=== PATIENT | male | born 1975 | race Caucasian/White ===

== ENCOUNTER 2017-04-14 00:24 | Emergency (ER) | payer SELFPAY ==
[~2017-04-14] VITALS: Ht 182.9 cm; Wt 84.8 kg
[2017-04-14 06:14] VITALS: BP 129/86
== END 2017-04-14 06:19 | disposition home or self-care (01) ==
LOC: ED 06:10
DX: F10.121 Alcohol abuse with intoxication delirium (principal); G93.41 Metabolic encephalopathy
CPT/HCPCS: 36415; 70450; 80307; 99285; G0479

== ENCOUNTER 2019-01-05 11:51 | Inpatient (IN) | payer OTHER ==
[~2019-01-05] VITALS: Ht 182.9 cm; Wt 85.5 kg
--- NOTE | 2019-01-05 12:12 | NUR ---
THIS IS A 43 Y/O MALE ARRIVING TO THE ED WITH C/O OF CHEST PAIN IN THE EPIGASTRIC REGION PT REPORTS THAT HE HAS THIS PAIN REMAIN CONSTANT AND PRESSURE LIKE. PT REPORTS THAT IT IS IN THE EPIGASTRIC REGION AND IS A 10/10 PAIN, PT REPORTS "FEELS LIKE MY STOMACH IS GONNA BLOW". PT DENIES TRUAMA AND REPORTS HEAVY DRINKING. PT DRINKS CLOSE TO [address] MLS OF HARD LIQUOR AT HOME AND KNOWS HE HAS A PROBLEM. DENIES HX OF PANCREATITIS. PT CONNECTED TO MONITORS AND RN URGENT CARE STUDENT ESTABLISHING PIV.
[2019-01-05] MEDS ORDERED: FAMOTIDINE 20 MG/2 ML IVP ONE (12:30)
[2019-01-05] MEDS ORDERED: SODIUM CHLORIDE FLUSH 10ML SYR IVF ONE (12:30)
[2019-01-05] MEDS: HYDROmorphone 2 MG/ML, 1ML IVPush PRN ×3 (12:30→16:21)
[2019-01-05] MEDS ORDERED: SODIUM CHLORIDE 0.9% 1,000ML IVBOLUS ONE (12:30)
[2019-01-05] MEDS ORDERED: ONDANSETRON 2MG/ML, 2ML IVPush ONE (12:30)
[2019-01-05] MEDS ORDERED: ONDANSETRON 2MG/ML, 2ML ONE (12:38)
[2019-01-05] MEDS ORDERED: HYDROmorphone 2 MG/ML, 1ML ONE (12:39)
[2019-01-05] MEDS ORDERED: FAMOTIDINE 20 MG/2 ML ONE (12:39)
[2019-01-05 12:49] LABS: BASOPHILS # (AUTO) 0.02 x10^3/uL (0-0.1); BASOPHILS % (AUTO) 0 % (0-1); EOSINOPHILS % (AUTO) 0 % (1-7); LYMPHOCYTES # (AUTO) 0.87 x10^3/uL (1-3.4); LYMPHOCYTES % (AUTO) 12 % (22-44); MD NO; MEAN CORPUSCULAR HEMOGLOBIN 33.9 pg (27.5-34.5); MEAN CORPUSCULAR HGB CONC 33.7 g/dL (33.2-36.2); MEAN CORPUSCULAR VOLUME 100.5 fL (81-97); MEAN PLATELET VOLUME 7.4 fL (7.4-10.4); MONOCYTES # (AUTO) 0.46 x10^3/uL (0.2-0.8); MONOCYTES % (AUTO) 6 % (2-9); NEUTROPHILS # (AUTO) 6.13 x10^3/uL (1.8-6.8); NEUTROPHILS % (AUTO) 82 % (42-75); PLATELET COUNT 154 x10^3/uL (130-400); RED BLOOD COUNT 5.01 x10^6/uL (4.38-5.82); RED CELL DISTRIBUTION WIDTH 14.9 % (9.4-14.8)
[2019-01-05 12:57] LABS: INTERNATIONAL NORMALIZED RATIO 0.95 (0.93-1.1)
[2019-01-05 13:00] LABS: ALANINE AMINOTRANSFERASE 64 U/L (12-78); ALBUMIN 4.3 g/dL (3.4-5.0); ANION GAP 10 mmol/L (5-15); CALCIUM 9.1 mg/dL (8.5-10.1); CHLORIDE 99 mmol/L (98-107); CREATININE 1.02 mg/dL (0.7-1.3)
[2019-01-05 13:05] LABS: ALKALINE PHOSPHATASE 98 U/L (45-117); BILIRUBIN,TOTAL 0.7 mg/dL (0.2-1.0); TOTAL PROTEIN 8.1 g/dL (6.4-8.2); TROPONIN I < 0.015 ng/mL (0.000-0.045)
--- NOTE | 2019-01-05 13:08 | NUR ---
pt reports pain improvement. Pt able to rest. ivf competed.
--- NOTE | 2019-01-05 13:50 | NUR ---
Awaiting return from CT.
--- NOTE | 2019-01-05 13:58 | NUR ---
PT BACK FROM CT, REPORTS PAIN STILL UNDER CONTROL.
[2019-01-05] MEDS ORDERED: OMNIPAQUE 350 MG/ML, 100ML BOTTLE ONE (14:01)
[2019-01-05] MEDS ORDERED: ONDANSETRON 2MG/ML, 2ML IVPush PRN (15:00)
[2019-01-05] MEDS ORDERED: FOLIC ACID 5 MG/ML IM ONE (15:00)
[2019-01-05] MEDS ORDERED: LORazepam 1MG TABLET PO PRN ×3 (15:00)
[2019-01-05] MEDS ORDERED: LORazepam 2 MG/ML, 1ML IV PRN ×5 (15:00)
[2019-01-05] MEDS ORDERED: PROMETHAZINE 25 MG/ML, 1ML IM PRN (15:00)
[2019-01-05] MEDS ORDERED: hydrALAzine 20 MG/ML, 1ML IVPush PRN (15:00)
--- NOTE | 2019-01-05 15:33 | NUR ---
report to nikki alaniz to room 338
[2019-01-05 16:25] VITALS: BP 158/93
[2019-01-05] MEDS ORDERED: FOLIC ACID 1 MG TABLET PO ONE (16:30)
[2019-01-05] MEDS: THIAMINE 100MG TABLET PO SCH (17:05)
[2019-01-05] MEDS: LACTATED RINGERS 1,000 ML IV SCH ×2 (17:06→23:08)
[2019-01-05] MEDS ORDERED: CYANOCOBALAMIN 1,000 MCG/ML, 1ML IM ONE (18:00)
[2019-01-05] MEDS: PANTOPRAZOLE 40 MG IV IVPush SCH (19:58)
[2019-01-05] MEDS: LORazepam 0.5MG TABLET PO PRN (19:59)
[2019-01-05 21:15] VITALS: BP 175/90
[2019-01-05 22:26] LABS: MICROSCOPIC AUTO
[2019-01-05 22:34] LABS: CULTURE INDICATED? NO
[2019-01-05 23:18] VITALS: BP 168/95
[2019-01-06] MEDS: LORazepam 1MG TABLET PO PRN ×2 (01:29→14:46)
[2019-01-06 01:50] VITALS: BP 152/74
[2019-01-06 04:21] LABS: BASOPHILS # (AUTO) 0.01 x10^3/uL (0-0.1); BASOPHILS % (AUTO) 0 % (0-1); EOSINOPHILS % (AUTO) 0 % (1-7); LYMPHOCYTES # (AUTO) 1.04 x10^3/uL (1-3.4); LYMPHOCYTES % (AUTO) 12 % (22-44); MD NO; MEAN CORPUSCULAR HEMOGLOBIN 32.9 pg (27.5-34.5); MEAN CORPUSCULAR HGB CONC 33.3 g/dL (33.2-36.2); MEAN CORPUSCULAR VOLUME 98.9 fL (81-97); MEAN PLATELET VOLUME 7.3 fL (7.4-10.4); MONOCYTES # (AUTO) 0.51 x10^3/uL (0.2-0.8); MONOCYTES % (AUTO) 6 % (2-9); NEUTROPHILS # (AUTO) 7.12 x10^3/uL (1.8-6.8); NEUTROPHILS % (AUTO) 82 % (42-75); PLATELET COUNT 124 x10^3/uL (130-400); RED BLOOD COUNT 4.61 x10^6/uL (4.38-5.82)
[2019-01-06 04:29] LABS: ALANINE AMINOTRANSFERASE 41 U/L (12-78); ALBUMIN 3.3 g/dL (3.4-5.0); ANION GAP 6 mmol/L (5-15); CALCIUM 8.6 mg/dL (8.5-10.1); CHLORIDE 103 mmol/L (98-107); CHOLESTEROL, TOTAL 207 mg/dL (140-239); CREATININE 0.77 mg/dL (0.7-1.3); TRIGLYCERIDES 164 mg/dL (50-200); VLDL CHOLESTEROL 33 mg/dL (0-25)
[2019-01-06 04:31] LABS: ALKALINE PHOSPHATASE 77 U/L (45-117); BILIRUBIN,TOTAL 0.8 mg/dL (0.2-1.0); CHOL/HDL RATIO 2.3; HDL CHOL % 44 % (26-37); HDL CHOLESTEROL (DIRECT) 91 mg/dL (40-60); LDL CHOLESTEROL,CALCULATED 83 mg/dL (54-169); LDL/HDL RATIO 0.9 (0.5-3.0); TOTAL PROTEIN 6.5 g/dL (6.4-8.2)
[2019-01-06] MEDS: HYDROmorphone 2 MG/ML, 1ML IVPush PRN (05:26)
[2019-01-06] MEDS: LACTATED RINGERS 1,000 ML IV SCH ×3 (05:26→17:55)
[2019-01-06 08:01] VITALS: BP 142/88
[2019-01-06] MEDS: MULTIVITAMINS/MINERALS TABLET PO SCH (09:26)
[2019-01-06] MEDS: PANTOPRAZOLE 40 MG IV IVPush SCH ×2 (09:26→20:51)
[2019-01-06] MEDS: THIAMINE 100MG TABLET PO SCH (09:26)
[2019-01-06] MEDS: CYANOCOBALAMIN 1,000 MCG TABLET PO SCH (11:30)
[2019-01-06 12:53] VITALS: BP 146/74
[2019-01-06] MEDS: ACETAMINOPHEN 325 MG TABLET PO PRN (17:57)
[2019-01-06] MEDS: OXYcodone IR 5MG TABLET PO PRN (20:51)
[2019-01-06 21:18] VITALS: BP 166/90
[2019-01-07] MEDS: ACETAMINOPHEN 325 MG TABLET PO PRN (00:38)
[2019-01-07] MEDS: LACTATED RINGERS 1,000 ML IV SCH ×4 (00:38→20:05)
[2019-01-07 01:47] VITALS: BP 128/75
[2019-01-07] MEDS: LORazepam 1MG TABLET PO PRN (04:07)
[2019-01-07 04:49] LABS: BASOPHILS # (AUTO) 0.02 x10^3/uL (0-0.1); BASOPHILS % (AUTO) 0 % (0-1); EOSINOPHILS # (AUTO) 0.04 x10^3/uL (0-0.4); EOSINOPHILS % (AUTO) 1 % (1-7); LYMPHOCYTES # (AUTO) 1.61 x10^3/uL (1-3.4); LYMPHOCYTES % (AUTO) 21 % (22-44); MD NO; MEAN CORPUSCULAR HEMOGLOBIN 33.2 pg (27.5-34.5); MEAN CORPUSCULAR HGB CONC 33.5 g/dL (33.2-36.2); MEAN PLATELET VOLUME 7.2 fL (7.4-10.4); MONOCYTES # (AUTO) 0.68 x10^3/uL (0.2-0.8); MONOCYTES % (AUTO) 9 % (2-9); NEUTROPHILS # (AUTO) 5.19 x10^3/uL (1.8-6.8); NEUTROPHILS % (AUTO) 69 % (42-75); PLATELET COUNT 116 x10^3/uL (130-400); RED BLOOD COUNT 4.13 x10^6/uL (4.38-5.82); RED CELL DISTRIBUTION WIDTH 14.1 % (9.4-14.8)
[2019-01-07 05:00] LABS: ALANINE AMINOTRANSFERASE 30 U/L (12-78); ALBUMIN 2.9 g/dL (3.4-5.0); ANION GAP 5 mmol/L (5-15); CALCIUM 8.6 mg/dL (8.5-10.1); CHLORIDE 102 mmol/L (98-107); CREATININE 0.75 mg/dL (0.7-1.3)
[2019-01-07 05:03] LABS: ALKALINE PHOSPHATASE 99 U/L (45-117); BILIRUBIN,TOTAL 0.9 mg/dL (0.2-1.0); TOTAL PROTEIN 6.3 g/dL (6.4-8.2)
[2019-01-07 08:40] VITALS: BP 141/78
[2019-01-07] MEDS ORDERED: THIAMINE 100 MG in DEXTROSE 5% 50 ML IVPB SCH (09:00)
[2019-01-07] MEDS: MULTIVITAMINS/MINERALS TABLET PO SCH (10:08)
[2019-01-07] MEDS: PANTOPRAZOLE 40 MG IV IVPush SCH ×2 (10:08→20:05)
[2019-01-07] MEDS: CYANOCOBALAMIN 1,000 MCG TABLET PO SCH (10:09)
[2019-01-07] MEDS: POTASSIUM CHLORIDE 20 MEQ TAB.ER.PRT PO SCH ×2 (10:09→17:09)
[2019-01-07] MEDS: THIAMINE 100MG TABLET PO SCH (10:09)
[2019-01-07 13:35] VITALS: BP 144/85
[2019-01-07 21:38] VITALS: BP 151/86
[2019-01-07] MEDS: LORazepam 0.5MG TABLET PO PRN (22:53)
[2019-01-08 03:20] VITALS: BP 148/79
[2019-01-08] MEDS: LACTATED RINGERS 1,000 ML IV SCH ×3 (03:33→19:44)
[2019-01-08 05:46] LABS: BASOPHILS # (AUTO) 0.02 x10^3/uL (0-0.1); BASOPHILS % (AUTO) 0 % (0-1); EOSINOPHILS # (AUTO) 0.06 x10^3/uL (0-0.4); EOSINOPHILS % (AUTO) 1 % (1-7); LYMPHOCYTES # (AUTO) 1.58 x10^3/uL (1-3.4); LYMPHOCYTES % (AUTO) 21 % (22-44); MD NO; MEAN PLATELET VOLUME 8.1 fL (7.4-10.4); MONOCYTES # (AUTO) 0.74 x10^3/uL (0.2-0.8); MONOCYTES % (AUTO) 10 % (2-9); NEUTROPHILS # (AUTO) 5.07 x10^3/uL (1.8-6.8); NEUTROPHILS % (AUTO) 68 % (42-75); PLATELET COUNT 129 x10^3/uL (130-400); RED BLOOD COUNT 4.07 x10^6/uL (4.38-5.82); RED CELL DISTRIBUTION WIDTH 14.5 % (9.4-14.8)
[2019-01-08 06:00] LABS: ALANINE AMINOTRANSFERASE 35 U/L (12-78); ALBUMIN 3.2 g/dL (3.4-5.0); ANION GAP 6 mmol/L (5-15); CALCIUM 9.1 mg/dL (8.5-10.1); CHLORIDE 104 mmol/L (98-107)
[2019-01-08 06:02] LABS: ALKALINE PHOSPHATASE 170 U/L (45-117); BILIRUBIN,TOTAL 0.8 mg/dL (0.2-1.0)
[2019-01-08 08:40] VITALS: BP 159/106
[2019-01-08] MEDS: MULTIVITAMINS/MINERALS TABLET PO SCH (09:33)
[2019-01-08] MEDS: THIAMINE 100MG TABLET PO SCH (09:33)
[2019-01-08] MEDS: CYANOCOBALAMIN 1,000 MCG TABLET PO SCH (09:33)
[2019-01-08] MEDS: PANTOPRAZOLE 40 MG IV IVPush SCH (09:33)
[2019-01-08] MEDS: OXYcodone IR 5MG TABLET PO PRN ×3 (09:34→20:19)
[2019-01-08] MEDS ORDERED: POTASSIUM CHLORIDE 20 MEQ TAB.ER.PRT PO ONE (10:30)
[2019-01-08 10:58] VITALS: BP 151/88
[2019-01-08 13:05] VITALS: BP 148/102
[2019-01-08] MEDS: LISINOPRIL 5 MG TABLET PO SCH (13:08)
[2019-01-08 16:38] VITALS: BP_SYST 148; BP_SYST 166; BP_DIAS 108; BP_DIAS 116
[2019-01-08] MEDS ORDERED: LISINOPRIL 5 MG TABLET PO ONE (18:00)
[2019-01-08] MEDS: ACETAMINOPHEN 325 MG TABLET PO PRN (18:38)
[2019-01-08 20:06] VITALS: BP 161/101
[2019-01-09] MEDS: ACETAMINOPHEN 325 MG TABLET PO PRN (00:20)
[2019-01-09] MEDS: OXYcodone IR 5MG TABLET PO PRN ×2 (00:20→09:13)
[2019-01-09 01:03] VITALS: BP 168/91
[2019-01-09 04:35] LABS: BASOPHILS # (AUTO) 0.04 x10^3/uL (0-0.1); BASOPHILS % (AUTO) 1 % (0-1); EOSINOPHILS # (AUTO) 0.09 x10^3/uL (0-0.4); EOSINOPHILS % (AUTO) 1 % (1-7); LYMPHOCYTES # (AUTO) 1.76 x10^3/uL (1-3.4); LYMPHOCYTES % (AUTO) 24 % (22-44); MD NO; MEAN CORPUSCULAR HEMOGLOBIN 33.4 pg (27.5-34.5); MEAN CORPUSCULAR HGB CONC 33.4 g/dL (33.2-36.2); MEAN CORPUSCULAR VOLUME 100.1 fL (81-97); MEAN PLATELET VOLUME 7.1 fL (7.4-10.4); MONOCYTES # (AUTO) 0.79 x10^3/uL (0.2-0.8); MONOCYTES % (AUTO) 11 % (2-9); NEUTROPHILS % (AUTO) 63 % (42-75); PLATELET COUNT 174 x10^3/uL (130-400); RED BLOOD COUNT 4.15 x10^6/uL (4.38-5.82); RED CELL DISTRIBUTION WIDTH 14.6 % (9.4-14.8)
[2019-01-09 04:45] LABS: ALANINE AMINOTRANSFERASE 99 U/L (12-78); ALBUMIN 3.3 g/dL (3.4-5.0); ANION GAP 8 mmol/L (5-15); CALCIUM 9.5 mg/dL (8.5-10.1); CHLORIDE 102 mmol/L (98-107); CREATININE 0.72 mg/dL (0.7-1.3)
[2019-01-09 04:50] LABS: ALKALINE PHOSPHATASE 247 U/L (45-117); BILIRUBIN,TOTAL 0.7 mg/dL (0.2-1.0); TOTAL PROTEIN 7.3 g/dL (6.4-8.2)
[2019-01-09 08:00] VITALS: BP 161/99
[2019-01-09] MEDS: THIAMINE 100MG TABLET PO SCH (09:13)
[2019-01-09] MEDS: MULTIVITAMINS/MINERALS TABLET PO SCH (09:13)
[2019-01-09] MEDS: LISINOPRIL 5 MG TABLET PO SCH (09:13)
[2019-01-09] MEDS: CYANOCOBALAMIN 1,000 MCG TABLET PO SCH (09:14)
[2019-01-09 09:38] LABS: ALANINE AMINOTRANSFERASE 93 U/L (12-78); ALBUMIN 3.4 g/dL (3.4-5.0); ANION GAP 6 mmol/L (5-15); CALCIUM 9.4 mg/dL (8.5-10.1); CHLORIDE 105 mmol/L (98-107); CREATININE 0.71 mg/dL (0.7-1.3)
[2019-01-09 09:40] LABS: ALKALINE PHOSPHATASE 258 U/L (45-117); BILIRUBIN,TOTAL 0.8 mg/dL (0.2-1.0); TOTAL PROTEIN 7.6 g/dL (6.4-8.2)
[2019-01-09] MEDS ORDERED: LISI5TAB7 PO (10:19)
== END 2019-01-09 13:30 | disposition home or self-care (01) | DRG 439 ==
LOC: ED 14:30 → EDIP 14:54 → 3NW 15:53 → DCLOUNGE 01-09 13:15
PROVIDERS: ADMIT Internal Medicine; ATTEND Internal Medicine
DX: K85.20 Alcohol induced acute pancreatitis without necrosis or infection (principal); K92.0 Hematemesis; K76.0 Fatty (change of) liver, not elsewhere classified; D69.6 Thrombocytopenia, unspecified; F10.10 Alcohol abuse, uncomplicated; E53.8 Deficiency of other specified B group vitamins; E87.6 Hypokalemia; F41.9 Anxiety disorder, unspecified; I10 Essential (primary) hypertension; D18.00 Hemangioma unspecified site; D75.89 Other specified diseases of blood and blood-forming organs; Z83.3 Family history of diabetes mellitus; Z79.899 Other long term (current) drug therapy; Z71.41 Alcohol abuse counseling and surveillance of alcoholic
CPT/HCPCS: 36415; 99285; J3490; 71045; 74177; 80053; 80061; 81001; 82607; 83605; 83690; 83735; 84484; 85014; 85018; 85025; 85610; 85730; 93005; 96374; 96375; G0378; J1170; J2405; Q9967; C9113; J3420; J7030; J7120

== ENCOUNTER 2019-07-14 06:44 | Inpatient (IN) | payer MEDICAID ==
[~2019-07-14] VITALS: Ht 182.9 cm; Wt 80.6 kg
[~2019-07-14 06:44] MED LIST: LISI5TAB7 PO
--- NOTE | 2019-07-14 06:54 | NUR ---
PT AMBULATES FROM TRIAGE TO ROOM WITH STEADY GAIT.
[2019-07-14] MEDS ORDERED: SODIUM CHLORIDE FLUSH 10ML SYR IVF ONE (07:30)
[2019-07-14] MEDS ORDERED: SODIUM CHLORIDE 0.9% 1,000ML IVBOLUS ONE (07:30)
[2019-07-14 07:47] LABS: BASOPHILS # (AUTO) 0.07 x10^3/uL (0-0.1); BASOPHILS % (AUTO) 1 % (0-1); EOSINOPHILS # (AUTO) 0.04 x10^3/uL (0-0.4); EOSINOPHILS % (AUTO) 1 % (1-7); LYMPHOCYTES # (AUTO) 1.22 x10^3/uL (1-3.4); LYMPHOCYTES % (AUTO) 19 % (22-44); MD NO; MEAN CORPUSCULAR HEMOGLOBIN 33.9 pg (27.5-34.5); MEAN CORPUSCULAR HGB CONC 33.9 g/dL (33.2-36.2); MEAN CORPUSCULAR VOLUME 99.9 fL (81-97); MEAN PLATELET VOLUME 8.5 fL (7.4-10.4); MONOCYTES # (AUTO) 0.26 x10^3/uL (0.2-0.8); MONOCYTES % (AUTO) 4 % (2-9); NEUTROPHILS # (AUTO) 4.82 x10^3/uL (1.8-6.8); NEUTROPHILS % (AUTO) 75 % (42-75); PLATELET COUNT 156 x10^3/uL (130-400); RED BLOOD COUNT 4.54 x10^6/uL (4.38-5.82); RED CELL DISTRIBUTION WIDTH 14.6 % (9.4-14.8)
[2019-07-14 07:59] LABS: ALBUMIN 3.4 g/dL (3.4-5.0); ANION GAP 9 mmol/L (5-15); CALCIUM 8.7 mg/dL (8.5-10.1); CHLORIDE 107 mmol/L (98-107)
[2019-07-14 08:02] LABS: ALANINE AMINOTRANSFERASE 298 U/L (12-78); ALKALINE PHOSPHATASE 169 U/L (45-117); BILIRUBIN,TOTAL 1.7 mg/dL (0.2-1.0); CREATININE 0.93 mg/dL (0.7-1.3); TOTAL PROTEIN 6.9 g/dL (6.4-8.2)
[2019-07-14] MEDS ORDERED: ONDA4TAB13 SL (08:04)
[2019-07-14] MEDS ORDERED: FLUO10CA7 PO (08:04)
[2019-07-14] MEDS ORDERED: TRAZ-137 PO (08:04)
--- NOTE | 2019-07-14 08:12 | NUR ---
pt in hospital gown. iv started, ordered fluids infusing. labs have been drawn. call light within reach. pt on vitals monitors. will continue to monitor.
[2019-07-14] MEDS ORDERED: ONDANSETRON 2MG/ML, 2ML IVPush ONE (08:30)
[2019-07-14] MEDS ORDERED: ONDANSETRON 2MG/ML, 2ML ONE (08:30)
[2019-07-14] MEDS ORDERED: MORPHINE SULFATE 4 MG/ML, 1ML ONE ×2 (08:31→12:07)
[2019-07-14] MEDS: MORPHINE SULFATE 4 MG/ML, 1ML IVPush PRN ×2 (08:32→12:11)
--- NOTE | 2019-07-14 09:47 | NUR ---
REPORT RECEIVED FROM PETRONA ESCOBAR. PT A&O, NSR ON INTEGRATION ARCHITECT WITH NO ECTOPY. PT DENIES PAIN. RESPS EVEN AND UNLABORED. PT TO BE ADMITTED.
[2019-07-14] MEDS ORDERED: MORPHINE SULFATE 4 MG/ML, 1ML IVPush PRN (10:00)
[2019-07-14] MEDS ORDERED: ONDANSETRON 2MG/ML, 2ML IVPush PRN ×2 (10:00→14:30)
[2019-07-14] MEDS ORDERED: SODIUM CHLORIDE 0.9% 1,000 ML IV ONE (10:00)
--- NOTE | 2019-07-14 10:15 | NUR ---
pt sleeping, resps even and unlabored, nadn. awaiting med surg bed at this time.
[2019-07-14] MEDS ORDERED: SODIUM CHLORIDE FLUSH 10ML SYR IVF PRN (11:00)
--- NOTE | 2019-07-14 11:04 | NUR ---
REPORT GIVEN TO GUERLINE DORSEY.
--- NOTE | 2019-07-14 12:12 | NUR ---
PT NOTES 5/10 MIDLINE THORACIC PAIN, STATES THIS HAS BEEN CONSISTENT X 3 DAYS. PT DENIES CP AT THIS TIME. NO N/V. ERP GRAUSZ NOTIFIED. ERP DECLINED TO ORDER TROPONIN, STATES THIS PAIN IS DUE TO PANCREATITIS. PT A&OX4, RSPS EVEN AND UNLABORED, SINUS ANNELISE RATE 50'S ON POWERSAW SUPERVISOR WITH NO ECTOPY. PT MEDICATED PER EMAR WITH SECOND DOSE MORPHINE AT REQUEST. AWAITING MEDICAL BED ASSIGNMENT AND TRANSPORT.
--- NOTE | 2019-07-14 12:30 | NUR ---
pt reports pain resolved, pt a&o, resps even and unlabored, sinus celine rate 50s on property assessment monitor with no ectopy. no n/v. nadn at this time.
--- NOTE | 2019-07-14 14:00 | NUR ---
MD qureshi at bedside for admit assessment.
[2019-07-14] MEDS ORDERED: hydrALAzine 20 MG/ML, 1ML IVPush PRN (14:30)
[2019-07-14] MEDS ORDERED: DOCUSATE 100 MG CAPSULE PO PRN (14:30)
[2019-07-14] MEDS ORDERED: POLYETHYLENE GLYCOL 17 GM PACKET PO PRN (14:30)
[2019-07-14] MEDS ORDERED: LORazepam 2 MG/ML, 1ML IV PRN ×5 (14:30)
[2019-07-14] MEDS ORDERED: BISACODYL 10 MG SUPP PR PRN (14:30)
[2019-07-14] MEDS ORDERED: PROMETHAZINE 25 MG/ML, 1ML IM PRN (14:30)
[2019-07-14] MEDS ORDERED: TRAZODONE 100MG TABLET PO PRN (14:30)
[2019-07-14] MEDS ORDERED: ONDANSETRON ODT 4 MG PO PRN (14:30)
[2019-07-14] MEDS ORDERED: LORazepam 1MG TABLET PO PRN ×4 (14:30)
--- NOTE | 2019-07-14 14:35 | NUR ---
US at bedside.
--- NOTE | 2019-07-14 14:44 | NUR ---
report given to receiving PETRONA Martin. pt awaiting transport to room 378.
[2019-07-14 14:48] LABS: INTERNATIONAL NORMALIZED RATIO 0.94 (0.93-1.1)
[2019-07-14 15:10] VITALS: BP_SYST 130; BP_DIAS 78; BP_DIAS 90
[2019-07-14 15:26] LABS: FREE T4 (FREE THYROXINE) 0.89 ng/dL (0.76-1.46)
[2019-07-14] MEDS: morphine SULFATE 10 MG/ML, 1ML IVPush PRN ×2 (16:33→22:06)
[2019-07-14] MEDS: PANTOPRAZOLE 40 MG IV IVPush SCH (16:34)
[2019-07-14] MEDS: LACTATED RINGERS 1,000 ML IV SCH ×2 (16:34→21:58)
[2019-07-14 19:03] VITALS: BP 168/99
[2019-07-14 20:30] VITALS: BP 158/86
[2019-07-15 01:54] VITALS: BP 153/82
[2019-07-15] MEDS: LACTATED RINGERS 1,000 ML IV SCH ×3 (02:49→12:49)
[2019-07-15] MEDS: morphine SULFATE 10 MG/ML, 1ML IVPush PRN ×3 (02:49→14:29)
[2019-07-15] MEDS: PANTOPRAZOLE 40 MG IV IVPush SCH ×2 (04:56→16:48)
[2019-07-15 05:41] LABS: BASOPHILS # (AUTO) 0.02 x10^3/uL (0-0.1); BASOPHILS % (AUTO) 0 % (0-1); EOSINOPHILS # (AUTO) 0.03 x10^3/uL (0-0.4); EOSINOPHILS % (AUTO) 0 % (1-7); LYMPHOCYTES # (AUTO) 1.19 x10^3/uL (1-3.4); LYMPHOCYTES % (AUTO) 17 % (22-44); MD NO; MEAN CORPUSCULAR HGB CONC 33.8 g/dL (33.2-36.2); MEAN CORPUSCULAR VOLUME 100.8 fL (81-97); MEAN PLATELET VOLUME 8.2 fL (7.4-10.4); MONOCYTES # (AUTO) 0.32 x10^3/uL (0.2-0.8); MONOCYTES % (AUTO) 5 % (2-9); NEUTROPHILS # (AUTO) 5.34 x10^3/uL (1.8-6.8); NEUTROPHILS % (AUTO) 78 % (42-75); PLATELET COUNT 142 x10^3/uL (130-400); RED BLOOD COUNT 4.24 x10^6/uL (4.38-5.82); RED CELL DISTRIBUTION WIDTH 14.5 % (9.4-14.8)
[2019-07-15 05:52] LABS: ALANINE AMINOTRANSFERASE 163 U/L (12-78); ALBUMIN 3.1 g/dL (3.4-5.0); ANION GAP 7 mmol/L (5-15); CALCIUM 8.5 mg/dL (8.5-10.1); CHLORIDE 103 mmol/L (98-107); CHOLESTEROL, TOTAL 205 mg/dL (140-239); CREATININE 0.77 mg/dL (0.7-1.3)
[2019-07-15 05:57] LABS: ALKALINE PHOSPHATASE 134 U/L (45-117); BILIRUBIN,TOTAL 1.1 mg/dL (0.2-1.0); CHOL/HDL RATIO 1.8; HDL CHOL % 55 % (26-37); HDL CHOLESTEROL (DIRECT) 113 mg/dL (40-60); LDL CHOLESTEROL,CALCULATED 46 mg/dL (54-169); LDL/HDL RATIO 0.4 (0.5-3.0); TOTAL PROTEIN 6.3 g/dL (6.4-8.2); TRIGLYCERIDES 229 mg/dL (50-200); VLDL CHOLESTEROL 46 mg/dL (0-25)
[2019-07-15 08:46] VITALS: BP 144/86
[2019-07-15] MEDS ORDERED: LISINOPRIL 10 MG TABLET PO SCH (09:00)
[2019-07-15] MEDS: FLUOXETINE 10 MG CAP PO SCH (09:06)
[2019-07-15] MEDS ORDERED: THIAMINE 200 MG in SODIUM CHLORIDE 0.9% 50 ML IV ONE (11:00)
[2019-07-15 15:35] VITALS: BP 160/91
[2019-07-15] MEDS: POTASSIUM CHLORIDE 20 MEQ, MAGNESIUM SULFATE 1 GM, MVI ADULT 10 ML, THIAMINE 200 MG, FO... IV SCH (15:40)
[2019-07-15] MEDS: ENOXAPARIN 40 MG/0.4 ML SQ SCH (16:48)
[2019-07-15 19:05] VITALS: BP 156/90
[2019-07-16 01:38] VITALS: BP 164/95
[2019-07-16] MEDS: morphine SULFATE 10 MG/ML, 1ML IVPush PRN (01:59)
[2019-07-16] MEDS: PANTOPRAZOLE 40 MG IV IVPush SCH ×2 (04:52→16:17)
[2019-07-16 05:12] LABS: BASOPHILS # (AUTO) 0.02 x10^3/uL (0-0.1); BASOPHILS % (AUTO) 0 % (0-1); EOSINOPHILS # (AUTO) 0.07 x10^3/uL (0-0.4); EOSINOPHILS % (AUTO) 1 % (1-7); LYMPHOCYTES # (AUTO) 1.49 x10^3/uL (1-3.4); LYMPHOCYTES % (AUTO) 20 % (22-44); MD NO; MEAN CORPUSCULAR HEMOGLOBIN 33.7 pg (27.5-34.5); MEAN CORPUSCULAR HGB CONC 33.8 g/dL (33.2-36.2); MEAN CORPUSCULAR VOLUME 99.6 fL (81-97); MEAN PLATELET VOLUME 8.5 fL (7.4-10.4); MONOCYTES # (AUTO) 0.59 x10^3/uL (0.2-0.8); MONOCYTES % (AUTO) 8 % (2-9); NEUTROPHILS % (AUTO) 70 % (42-75); PLATELET COUNT 132 x10^3/uL (130-400); RED BLOOD COUNT 4.38 x10^6/uL (4.38-5.82); RED CELL DISTRIBUTION WIDTH 14.6 % (9.4-14.8)
[2019-07-16 05:19] LABS: ALANINE AMINOTRANSFERASE 112 U/L (12-78); ALBUMIN 3.2 g/dL (3.4-5.0); ANION GAP 8 mmol/L (5-15); CALCIUM 9.1 mg/dL (8.5-10.1); CHLORIDE 99 mmol/L (98-107)
[2019-07-16 05:25] LABS: ALKALINE PHOSPHATASE 162 U/L (45-117); BILIRUBIN,TOTAL 1.2 mg/dL (0.2-1.0); CREATININE 0.84 mg/dL (0.7-1.3)
[2019-07-16 07:23] VITALS: BP 142/84
[2019-07-16] MEDS: FLUOXETINE 10 MG CAP PO SCH (09:54)
[2019-07-16] MEDS: LORazepam 0.5MG TABLET PO PRN ×3 (09:58→23:56)
[2019-07-16 13:39] VITALS: BP 136/83
[2019-07-16] MEDS: POTASSIUM CHLORIDE 20 MEQ, MAGNESIUM SULFATE 1 GM, MVI ADULT 10 ML, THIAMINE 200 MG, FO... IV SCH (16:17)
[2019-07-16] MEDS: ENOXAPARIN 40 MG/0.4 ML SQ SCH (16:17)
[2019-07-16 19:28] VITALS: BP 132/97
[2019-07-17 01:25] VITALS: BP 136/84
[2019-07-17] MEDS: PANTOPRAZOLE 40 MG IV IVPush SCH ×2 (05:03→16:16)
[2019-07-17 07:34] LABS: BASOPHILS # (AUTO) 0.04 x10^3/uL (0-0.1); BASOPHILS % (AUTO) 1 % (0-1); EOSINOPHILS # (AUTO) 0.17 x10^3/uL (0-0.4); EOSINOPHILS % (AUTO) 3 % (1-7); LYMPHOCYTES # (AUTO) 1.71 x10^3/uL (1-3.4); LYMPHOCYTES % (AUTO) 32 % (22-44); MD NO; MEAN CORPUSCULAR HEMOGLOBIN 33.7 pg (27.5-34.5); MEAN CORPUSCULAR HGB CONC 33.6 g/dL (33.2-36.2); MEAN CORPUSCULAR VOLUME 100.4 fL (81-97); MEAN PLATELET VOLUME 8.8 fL (7.4-10.4); MONOCYTES % (AUTO) 11 % (2-9); NEUTROPHILS % (AUTO) 53 % (42-75); PLATELET COUNT 137 x10^3/uL (130-400); RED BLOOD COUNT 4.31 x10^6/uL (4.38-5.82); RED CELL DISTRIBUTION WIDTH 14.4 % (9.4-14.8)
[2019-07-17 07:38] LABS: ALANINE AMINOTRANSFERASE 87 U/L (12-78); ALBUMIN 3.2 g/dL (3.4-5.0); ANION GAP 7 mmol/L (5-15); CALCIUM 9.1 mg/dL (8.5-10.1); CHLORIDE 106 mmol/L (98-107)
[2019-07-17 07:39] LABS: ALKALINE PHOSPHATASE 172 U/L (45-117); BILIRUBIN,TOTAL 0.8 mg/dL (0.2-1.0); CREATININE 0.75 mg/dL (0.7-1.3)
[2019-07-17 08:06] VITALS: BP 152/105
[2019-07-17] MEDS: FLUOXETINE 10 MG CAP PO SCH (09:08)
[2019-07-17] MEDS: OXYcodone IR 5MG TABLET PO PRN ×2 (09:46→21:01)
[2019-07-17 16:12] VITALS: BP 153/100
[2019-07-17] MEDS: POTASSIUM CHLORIDE 20 MEQ, MAGNESIUM SULFATE 1 GM, MVI ADULT 10 ML, THIAMINE 200 MG, FO... IV SCH (16:16)
[2019-07-17] MEDS: ENOXAPARIN 40 MG/0.4 ML SQ SCH (16:17)
[2019-07-17 19:50] VITALS: BP 155/93
[2019-07-18 01:20] VITALS: BP 163/95
[2019-07-18] MEDS: PANTOPRAZOLE 40 MG IV IVPush SCH (04:59)
[2019-07-18 06:30] LABS: BASOPHILS # (AUTO) 0.05 x10^3/uL (0-0.1); BASOPHILS % (AUTO) 1 % (0-1); EOSINOPHILS # (AUTO) 0.14 x10^3/uL (0-0.4); EOSINOPHILS % (AUTO) 3 % (1-7); LYMPHOCYTES # (AUTO) 1.75 x10^3/uL (1-3.4); LYMPHOCYTES % (AUTO) 33 % (22-44); MD NO; MEAN CORPUSCULAR HEMOGLOBIN 33.6 pg (27.5-34.5); MEAN CORPUSCULAR HGB CONC 33.4 g/dL (33.2-36.2); MEAN CORPUSCULAR VOLUME 100.6 fL (81-97); MEAN PLATELET VOLUME 8.4 fL (7.4-10.4); MONOCYTES # (AUTO) 0.75 x10^3/uL (0.2-0.8); MONOCYTES % (AUTO) 14 % (2-9); NEUTROPHILS # (AUTO) 2.64 x10^3/uL (1.8-6.8); NEUTROPHILS % (AUTO) 50 % (42-75); PLATELET COUNT 157 x10^3/uL (130-400); RED BLOOD COUNT 4.23 x10^6/uL (4.38-5.82); RED CELL DISTRIBUTION WIDTH 14.8 % (9.4-14.8)
[2019-07-18 08:00] VITALS: BP 158/85
[2019-07-18] MEDS: FLUOXETINE 10 MG CAP PO SCH (10:00)
[2019-07-18] MEDS: OXYcodone IR 5MG TABLET PO PRN (10:05)
[2019-07-18] MEDS ORDERED: MULT-500 PO (12:27)
== END 2019-07-18 15:33 | disposition home or self-care (01) | DRG 440 ==
LOC: ED 09:39 → EDIP 09:41 → 3N 14:39 → DCLOUNGE 07-18 15:27
PROVIDERS: ADMIT Internal Medicine; ATTEND Internal Medicine
DX: K85.20 Alcohol induced acute pancreatitis without necrosis or infection (principal); K70.10 Alcoholic hepatitis without ascites; K76.0 Fatty (change of) liver, not elsewhere classified; I10 Essential (primary) hypertension; G89.29 Other chronic pain; F41.9 Anxiety disorder, unspecified; F32.9 Major depressive disorder, single episode, unspecified; B19.20 Unspecified viral hepatitis C without hepatic coma; F10.10 Alcohol abuse, uncomplicated; D18.03 Hemangioma of intra-abdominal structures
CPT/HCPCS: 36415; 74181; 76700; 80053; 80061; 82140; 82306; 82607; 83036; 83690; 83735; 84100; 84439; 84443; 85025; 85610; 93005; 96374; G0378; J1650; J2405; J3411; J3475; J3480; C9113; J2060; J2270; J7030; J7120